=== PATIENT | male | born 1960 | race Two or more races ===

== ENCOUNTER 2016-11-30 07:56 | Inpatient (IN) | payer MEDICAID ==
[~2016-11-30] VITALS: Ht 162.6 cm; Wt 139.5 kg
[2016-11-30 09:11] LABS: Basophils # (auto) 0 uL; Basophils % (auto) 0.5 % (0.0-2.0); Eosinophils # (auto) 0.1 uL; Eosinophils % (auto) 1.8 % (0.0-7.0); Hematocrit 45.3 % (41.0-53.0); Hemoglobin 15.6 g/dL (13.5-17.5); Lymphocytes # (auto) 1.3 uL; Lymphocytes % (auto) 18.5 % (10.0-50.0); Mean Corpuscular Hemoglobin 30.9 pg (28.0-32.0); Mean Corpuscular Hgb Conc. 34.4 g/dL (32.0-36.0); Mean Corpuscular Volume 89.6 fL (80.0-100.0); Mean Platelet Volume 9.3 fL (7.4-10.4); Monocytes # (auto) 0.5 uL; Monocytes % (auto) 7.1 % (0.0-12.0); Neutrophils # (auto) 4.9 uL; Neutrophils % (auto) 72.1 % (37.0-80.0); Platelet Count (auto) 128 10^3/uL (140-450); Red Cell Distribution Width 13.3 % (11.6-16.0); White Blood Cell 6.8 10^3/uL (4.4-10.8)
[2016-11-30] MEDS ORDERED: LORazepam 2MG/ML-1ML VIAL IV ONE (09:30)
[2016-11-30 09:33] LABS: Albumin 3.5 g/dL (3.4-5.0); Anion Gap 12 (5-15); Aspartate Aminotransferase 37 U/L (15-37); BUN/Creatinine Ratio 32.5; Blood Urea Nitrogen 26 mg/dL (7-18); Calcium 8.8 mg/dL (8.5-10.1); Carbon Dioxide 24 mmol/L (21-32); Chloride 103 mmol/L (98-107); GFR African American 130 mL/min; GFR Non-African American 107 mL/min; Glucose 163 mg/dL (74-106); Magnesium 1.7 mg/dL (1.6-2.6); Sodium 139 mmol/L (136-145)
[2016-11-30 09:37] LABS: B-Type Natriuretic Peptide 15.3 pg/mL (0-100); Temperature: 23.8 C (20.0-25.0)
[2016-11-30 09:39] LABS: Alkaline Phosphatase 71 U/L (45-117); Bilirubin, Total 0.8 mg/dL (0.2-1.0); Total Protein 7.3 g/dL (6.4-8.2)
[2016-11-30] MEDS ORDERED: MORPHINE SULF INJ 2 MG/ML SYRINGE 1ML IV PRN (13:30)
[2016-11-30] MEDS ORDERED: METOPROLOL SUCCINATE XL 50 MG TAB PO ONE (13:30)
[2016-11-30] MEDS ORDERED: NITROGLYCERIN 0.4 MG SL TAB SL PRN (13:30)
[2016-11-30] MEDS ORDERED: DEXTROSE (50%) 50ML SYRG IV PRN (13:30)
[2016-11-30] MEDS ORDERED: METF-370 PO (15:44)
[2016-11-30] MEDS ORDERED: SITA100T7 PO (15:44)
[2016-11-30] MEDS ORDERED: PRAV20TA3 PO (15:44)
[2016-11-30] MEDS ORDERED: LISI-285 PO (15:44)
[2016-11-30] MEDS ORDERED: GLIM2TAB33 PO (15:44)
[2016-11-30] MEDS ORDERED: METO25TA62 PO (15:44)
[2016-11-30] MEDS ORDERED: ASPI-498 OR (15:44)
[2016-11-30] MEDS ORDERED: BACL20TA PO (15:44)
[2016-11-30] MEDS ORDERED: NAPR-607 PO (15:44)
[2016-11-30] MEDS: InsuLIN REG 1unit/0.01ml Soln (100units/ml) SC SCH ×2 (17:00→21:47)
[2016-11-30] MEDS: ACCU-CHEK COMFORT CURVE STRIP VI SCH ×2 (17:00→21:46)
[2016-11-30 17:50] VITALS: BP 92/52
[2016-11-30] MEDS ORDERED: HYDROcodone-ACET 5/325MG TAB PO PRN (18:15)
[2016-11-30] MEDS ORDERED: HCTZ 25 MG TAB PO ONE (18:30)
[2016-11-30] MEDS: ATORVASTATIN 20 MG TAB PO SCH (21:34)
[2016-11-30] MEDS: BACLOFEN 10 MG TAB PO SCH (21:35)
[2016-11-30] MEDS: NAPROXEN 500 MG TAB PO SCH (21:36)
[2016-11-30 22:00] VITALS: BP 90/57
[2016-12-01 01:55] LABS: Urine Bilirubin Negative (Negative); Urine Blood Negative /uL (Negative); Urine Color Yellow (Yellow); Urine Glucose Normal (Normal); Urine Ketone Negative (Negative); Urine Mucus FEW (None Seen); Urine Nitrite Negative (Negative); Urine RBC <1 /hpf (0 - 3); Urine Squamous Epithelial Cell FEW /hpf (<5); Urine Urobilinogen Normal (Negative); Urine pH 5.5 (5.0-8.0)
[2016-12-01 05:00] VITALS: BP 114/69
[2016-12-01] MEDS: ACCU-CHEK COMFORT CURVE STRIP VI SCH ×4 (05:49→22:00)
[2016-12-01] MEDS: InsuLIN REG 1unit/0.01ml Soln (100units/ml) SC SCH ×4 (05:49→22:00)
[2016-12-01] MEDS: BACLOFEN 10 MG TAB PO SCH ×3 (06:36→22:40)
[2016-12-01] MEDS: GLIMEPIRIDE 2 MG TAB PO SCH (06:36)
[2016-12-01 07:24] LABS: BUN/Creatinine Ratio 32.5; Calcium 8.8 mg/dL (8.5-10.1); Potassium 3.7 mmol/L (3.5-5.1)
[2016-12-01 08:00] VITALS: BP 119/65
[2016-12-01 08:24] VITALS: BP 119/65
[2016-12-01] MEDS ORDERED: PATIENTS OWN MEDICATION PO SCH ×2 (10:00)
[2016-12-01] MEDS: JANUVIA PO SCH (10:00)
[2016-12-01] MEDS: LISINOPRIL 10 MG TAB PO SCH (10:05)
[2016-12-01] MEDS: HCTZ 25 MG TAB PO SCH (10:05)
[2016-12-01] MEDS: ASPirin 81 mg TAB PO SCH (10:06)
[2016-12-01] MEDS: NAPROXEN 500 MG TAB PO SCH ×2 (10:06→22:00)
[2016-12-01] MEDS: METOPROLOL SUCCINATE XL 50 MG TAB PO SCH (10:07)
[2016-12-01 12:38] VITALS: BP 95/52
[2016-12-01 17:04] VITALS: BP 98/103
[2016-12-01 22:00] VITALS: BP 130/59
[2016-12-01] MEDS: ATORVASTATIN 20 MG TAB PO SCH (22:40)
[2016-12-02 05:00] VITALS: BP 98/54
[2016-12-02 06:04] LABS: Albumin 3.6 g/dL (3.4-5.0); BUN/Creatinine Ratio 27.4; Calcium 8.7 mg/dL (8.5-10.1); Magnesium 2.1 mg/dL (1.6-2.6); Potassium 3.8 mmol/L (3.5-5.1); Total Protein 6.9 g/dL (6.4-8.2)
[2016-12-02] MEDS: BACLOFEN 10 MG TAB PO SCH ×3 (06:32→22:13)
[2016-12-02] MEDS: GLIMEPIRIDE 2 MG TAB PO SCH (06:36)
[2016-12-02] MEDS: ACCU-CHEK COMFORT CURVE STRIP VI SCH ×4 (06:37→22:25)
[2016-12-02] MEDS: InsuLIN REG 1unit/0.01ml Soln (100units/ml) SC SCH ×4 (06:38→22:00)
[2016-12-02 08:00] VITALS: BP 140/79
[2016-12-02 09:49] VITALS: BP 140/79
[2016-12-02] MEDS: ASPirin 81 mg TAB PO SCH (10:15)
[2016-12-02] MEDS: HCTZ 25 MG TAB PO SCH (10:15)
[2016-12-02] MEDS: LISINOPRIL 10 MG TAB PO SCH (10:16)
[2016-12-02] MEDS: METOPROLOL SUCCINATE XL 50 MG TAB PO SCH (10:16)
[2016-12-02] MEDS: NAPROXEN 500 MG TAB PO SCH ×2 (10:17→22:13)
[2016-12-02] MEDS: JANUVIA PO SCH (10:17)
[2016-12-02 13:57] VITALS: BP 127/67
[2016-12-02 17:17] VITALS: BP 97/56
[2016-12-02 22:00] VITALS: BP 115/58
[2016-12-02] MEDS: ATORVASTATIN 20 MG TAB PO SCH (22:13)
[2016-12-03 05:00] VITALS: BP 98/55
[2016-12-03] MEDS: InsuLIN REG 1unit/0.01ml Soln (100units/ml) SC SCH ×2 (06:24→11:14)
[2016-12-03] MEDS: ACCU-CHEK COMFORT CURVE STRIP VI SCH ×2 (06:24→11:15)
[2016-12-03] MEDS: GLIMEPIRIDE 2 MG TAB PO SCH (06:45)
[2016-12-03] MEDS: BACLOFEN 10 MG TAB PO SCH (06:47)
[2016-12-03 08:00] VITALS: BP 98/55
[2016-12-03 09:00] VITALS: BP 85/57
[2016-12-03] MEDS: JANUVIA PO SCH (09:30)
[2016-12-03] MEDS: ASPirin 81 mg TAB PO SCH (09:31)
[2016-12-03] MEDS: NAPROXEN 500 MG TAB PO SCH (09:32)
[2016-12-03] MEDS: METOPROLOL SUCCINATE XL 50 MG TAB PO SCH (09:32)
[2016-12-03] MEDS: HCTZ 25 MG TAB PO SCH (09:32)
[2016-12-03] MEDS: LISINOPRIL 10 MG TAB PO SCH (09:33)
[2016-12-03 11:01] VITALS: BP 85/57
== END 2016-12-03 12:07 | disposition home or self-care (01) | DRG 201 ==
LOC: ER 07:56 → TELE 07:57 → TELE-E-ADS 14:45 → TELE-CENTR 17:56
PROVIDERS: ADMIT Internal Medicine; ATTEND Internal Medicine
DX: I47.1 Supraventricular tachycardia (principal); I11.9 Hypertensive heart disease without heart failure; Z68.43 Body mass index [BMI] 50.0-59.9, adult; E66.01 Morbid (severe) obesity due to excess calories; E11.9 Type 2 diabetes mellitus without complications; E78.5 Hyperlipidemia, unspecified; M19.90 Unspecified osteoarthritis, unspecified site; I25.10 Atherosclerotic heart disease of native coronary artery without angina pectoris; Z90.89 Acquired absence of other organs; Z71.89 Other specified counseling
CPT/HCPCS: 36415; 71010; 80048; 80053; 81001; 82962; 83036; 83735; 83880; 84443; 84484; 85025; 93005; 93306; 96374

== ENCOUNTER 2025-05-03 11:12 | Emergency (ER) | payer MEDICAID, OTHER ==
[~2025-05-03] VITALS: Ht 167.6 cm; Wt 113.5 kg
[~2025-05-03 11:12] MED LIST: ASPI-498 OR; BACL20TA PO; GLIM2TAB33 PO; LISI-285 PO; METF-370 PO; METO25TA93 PO; NAPR-746 PO; PRAV20TA3 PO; SITA100T7 PO
--- NOTE | 2025-05-03 11:27 | ED.PDOC ---
GI ASSESSMENT HPI Comments 64 y/o M, BIBA, with PMHx of HTN, HLD, and DM presents to the ED for CC of abdominal pain. EMS reports, patient is coming from home where he c/o epigastric abdominal pain with associated back pain onset, last night (05/03/25). At this time patient c/o 10/10 diffuse abdominal pain; patient's abdomen is notably distended at this time. Patient repots, to have associated bilateral leg swelling which has been present for xmonths however, has increasing worsened in the last couple of days. Patient denies melena, constipation, nausea, vomiting, or diarrhea. No other symptoms or modifying factors are present at this time. Chief Complaint: Abdominal Pain Time Seen by MD: 11:20 Primary Care Provider: LILIA Reviewed Notes: Nurses Notes, Medications, Allergies Allergies: Coded Allergies: NO KNOWN ALLERGIES (Unverified , 03/21/14) Home Meds Reported Medications Metoprolol Succinate (Metoprolol Succinate Er) 25 Mg Tab, 1 TAB PO QPM, #30 TAB 5 Refills 11/30/16 Pravastatin Sodium (PRAVACHOL TABLET) 20 Mg Tb, 1 TAB PO QPM, #90 TAB 3 Refills 11/30/16 Baclofen (Baclofen) 20 Mg Tab, 1 TAB PO TID, #90 TAB 2 Refills 11/30/16 Sitagliptin Phosphate (Januvia) 100 Mg Tab, 1 TAB PO DAILY, #30 TAB 5 Refills 11/30/16 Naproxen (Naproxen) 500 Mg Tab, 500 MG PO BID, TAB 11/30/16 Aspirin (ASPIRIN 81) 81 Mg Tab, 81 MG OR DAILY, TAB 11/30/16 Lisinopril & Hydrochlorothiazi (Lisinopril/Hydrochlorothi) 1 Tab Tab, 1 TAB PO DAILY, #30 TAB 5 Refills 11/30/16 Glimepiride (Glimepiride) 2 Mg Tab, 1 TAB PO DAILY, #30 TAB 5 Refills 17 Metformin Hydrochloride (Metformin Hcl) 500 Mg Tab, 1000 MG PO IBID for 30 Days, MG 11/30/16 Information Source: Patient Mode of Arrival: EMS Timing: Hours Duration: Since onset Prehospital treatment: None Quality: None Vomitus: None Stool: Normal Severity: Moderate Recent: None Recent Hx of: Diabetes Pain Location: Epigastric Modifying Factors: Nothing Associated sign and symptoms: Abdominal Pain Past Medical History PAST MEDICAL HISTORY: Arthritis, DM, High Lipids, HTN Surgical History: Tonsillectomy Family History Family History: Family hx of DM, Family hx of heart jeremy Social History Smoker: Non-Smoker Alcohol: Denies ETOH Use Drugs: Denies Drug Use Lives In: Home Constitutional: denies: chills, diaphoresis, fatigue, fever, malaise, sweats, weakness, others EENTM: denies: blurred vision, double vision, ear bleeding, ear discharge, ear drainage, ear pain, ear ringing, eye pain, eye redness, hearing loss, mouth pain, mouth swelling, nasal discharge, nose bleeding, nose congestion, nose pain, photophobia, tearing, throat pain, throat swelling, voice changes, others Respiratory: denies: cough, hemoptysis, orthopnea, SOB at rest, shortness of breath, SOB with excertion, stridor, wheezing, others Cardiovascular: denies: chest pain, dizzy spells, diaphoresis, Dyspnea on exertion, edema, irregular heart beat, left arm pain, lightheadedness, palpitations, PND, syncope, others Gastrointestinal: reports: abdominal pain; denies: abdomen distended, blood streaked bowels, constipated, diarrhea, dysphagia, difficulty swallowing, hematemesis, melena, nausea, poor appetite, poor fluid intake, rectal bleeding, rectal pain, vomiting, others Genitourinary: denies: burning, dysuria, flank pain, frequency, hematuria, incontinence, penile discharge, penile sore, pain, testicle pain, testicle swelling, urgency, others Neurological: denies: dizziness, fainting, headache, left sided numbness, left sided weakness, numbness, paresthesia, pre-existing deficit, right sided numbness, right sided weakness, seizure, speech problems, tingling, tremors, weakness, others Musculoskeletal: reports: back pain; denies: gout, joint pain, joint swelling, muscle pain, muscle stiffness, neck pain, others Integumetry: denies: bruises, change in color, change in hair/nails, dryness, laceration, lesions, lumps, rash, wounds, others Allergic/Immunocompromised: denies: Difficulty Healing, Frequent Infections, Hives, Itching, others Hematologic/Lymphatic: denies: anemia, blood clots, easy bleeding, easy bruising, swollen glands, others Endocrine: denies: excessive hunger, excessive sweating, excessive thirst, excessive urination, flushing, intolerance to cold, intolerance to heat, unexplained weight gain, unexplained weight loss, others Psychiatric: denies: anxiety, bipolar disorder, depression, hopeless, panic d isorder, schizophrenia, sleepless, suicidal, others All Other Systems: Reviewed and Negative Physical Exam General Appearance: Moderate Distress, Obese HEENT: Pharynx Normal, Scleral Icterus (L), Scleral Icterus (R), TMs Normal Neck: Full Range of Motion, Non-Tender, Normal, Normal Inspection Respiratory: Chest Non-Tender, Lungs Clear, No Accessory Muscle Use, No Respiratory Distress, Normal Breath Sounds Cardiovascular: No Edema, No JVD, No Murmur, No Gallop, Normal Peripheral Pulses, Regular Rate/Rhythm Breast Exam: Deferred Gastrointestinal: Distended, Epigastric, Hepatomegaly, No Pulsatile Mass, Normal Bowel Sounds, Soft, Tenderness Genitalia: Deferred Pelvic: Deferred Rectal: Deferred Extremities: No calf tenderness, Normal capillary refill, Normal inspection, Normal range of motion, Non-tender, No pedal edema Musculoskeletal : Apperance: Normal Neurologic: Alert, principal java software engineer II-XII nml as Tested, Motor Weakness, Normal Affect, Normal Mood, No Sensory Deficits Cerebellar Function: Normal Reflexes: Normal Skin: Dry, Normal Color, Warm Lymphatic: No Adenopathy Was a procedure done? Was a procedure done?: No GI differential Dx Differential Diagnosis: Cholangitis, Cholecystitis, Constipation, Gastritis/PUD, Gastroenteritis, Inflammatory BD X-Ray, Labs, Meds, VS Vital Signs Date Time Temp Pulse Resp B/P (MAP) Pulse Ox O2 Delivery O2 Flow Rate FiO2 05/03/25 13:15 97 24 117/58 (77) 98 05/03/25 13:06 94 26 117/58 05/03/25 12:00 93 05/03/25 12:00 101 05/03/25 11:19 98.2 94 18 132/81 97 98.2 Lab Test 05/03/25 11:36 Range/Units White Blood Count 6.4 4.4-10.8 10^3/uL Red Blood Count 5.10 4.5-5.90 10^6/uL Hemoglobin 13.9 13.5-17.5 g/dL Hematocrit 43.2 41.0-53.0 % Mean Corpuscular Volume 84.5 80.0-100.0 fL Mean Corpuscular Hemoglobin 27.3 L 28.0-32.0 pg Mean Corpuscular Hemoglobin Concent 32.3 32.0-36.0 g/dL Red Cell Distribution Width 15.3 H 11.8-14.3 % Platelet Count 58 L 140-450 10^3/uL Mean Platelet Volume 8.9 6.9-10.8 fL Neutrophils (%) (Auto) 91.5 H 37.0-80.0 % Lymphocytes (%) (Auto) 5.4 L 10.0-50.0 % Monocytes (%) (Auto) 2.8 0.0-12.0 % Eosinophils (%) (Auto) 0.1 0.0-7.0 % Basophils (%) (Auto) 0.2 0.0-2.0 % Neutrophils # (Auto) 5.9 1.6-8.6 10 ^3/uL Lymphocytes # (Auto) 0.3 L 0.4-5.4 10 ^3/uL Monocytes # (Auto) 0.2 0-1.3 10 ^3/uL Eosinophils # (Auto) 0 0-0.8 10 ^3/uL Basophils # (Auto) 0 0-0.2 10 ^3/uL Nucleated Red Blood Cells 0.2 % Sodium Level 139 136-145 mmol/L Potassium Level 4.0 3.5-5.1 mmol/L Chloride Level 103 98-107 mmol/L Carbon Dioxide Level 24 20-31 mmol/L Anion Gap 12 5-15 Blood Urea Nitrogen 18 9-23 mg/dL Creatinine 0.59 L 0.700-1.30 mg/dL Glomerular Filtration Rate Calc 109 >90 mL/min BUN/Creatinine Ratio 30.5 H 10.0-20.0 Serum Glucose 228 H 74-106 mg/dL Calcium Level 8.8 8.7-10.4 mg/dL Total Bilirubin 2.8 H 0.2-1.0 mg/dL Aspartate Amino Transferase (AST) 153 H 13-40 U/L Alanine Aminotransferase (ALT) 74 H 7-40 U/L Alkaline Phosphatase 176 H 46-116 U/L Total Protein 6.7 5.7-8.2 g/dL Albumin 3.6 3.2-4.8 g/dL Lipase 1314 H 12-53 U/L Current Medications Medications (Trade) Dose Ordered Sig/[place] Route Start Time Stop Time Status Last Admin Ondansetron HCl (Zofran) 4 mg ONCE ONCE IV 05/03/25 11:30 05/03/25 11:31 DC 05/03/25 13:06 Morphine Sulfate 4 mg ONCE ONCE IV 05/03/25 11:30 05/03/25 11:31 DC 05/03/25 13:06 Pantoprazole Sodium (Protonix) 40 mg ONCE ONCE IV 05/03/25 11:30 05/03/25 11:31 DC 05/03/25 13:06 [place] [address] Ph: [phone] DIAGNOSTIC IMAGING Diagnostic Imaging Report : [id number] Signed PATIENT: ANNALISA ELIZABETH ACCT: [id number] UNIT: [id number] : 1960 LOC: ER ROOM / BED: / AGE / SEX: 64 / M ADM STATUS: REG ER SERVICE 1120 ORDERING PHYSICIAN: NAEEM BURROUGHS MD PROCEDURE(s): GBUS - GALLBLADDER REASON: pain ORDER NUMBER(s): [id number], ACCESSION NUMBER(s): [id number] INDICATION: pain TECHNIQUE: Multiple real-time sonographic images were obtained of the right upper quadrant. COMPARISON: None FINDINGS: Evaluation is limited due to obscuration from bowel gas. The liver demonstrates coarsened echotexture without focal mass lesions. The liver measures 17 cm. There is no intrahepatic or extrahepatic ductal dilatation. The common duct measures is not well visualized due to obscuration from bowel gas. Gallstones. There is no gallbladder wall thickening. Mild gallbladder distention. The right kidney measures 13 cm. The right kidney is normal in contour, size, and shape. The echogenicity is normal. There is no hydronephrosis. The pancreas is not well visualized due to overlying bowel gas. IMPRESSION: Cholelithiasis. Mild gallbladder distention. If clinical concern for acute cholecystitis, consider further evaluation with nuclear medicine HIDA scan. Coarsened liver echotexture suggestive of chronic liver disease. ATED BY: BRYANNA BERG MD DICTATED DATE/TIME: 05/03/25 1210 SIGNED BY: BRYANNA BERG MD SIGNED DATE/TIME: 05/03/25 1210 CC: IV Hep-Lock was established. The patient's CBC is within normal limits. The chemistry panel is within normal limits The patient's lipase is elevated at 1314 The ALT and AST as well as the alk-phos are also increased and the total bilirubin is 2.8 The recommendation is that this patient has an MRCP. We did contact [facility] and they are accepting the patient to be transferred to their facility. This is transfer is also for higher level of care. The authorization #[id number] We have discussed the findings with the patient as well as the son and his . Images Reviewed?: Images reviewed and evaluated by me Time of 1ST Reevaluation: 11:50 Reevaluation 1ST: Unchanged Patient Education/Counseling: Diagnosis, Treatment, Prognosis Family Education/Counseling: No Family Present SEPSIS Sepsis Screen Physician Orders Urinalysis (05/03/25 11:20) Heplock Iv (05/03/25 11:20) Billet Heater (05/03/25 11:20) Blood Pressure (05/03/25 11:20) Pulse Oximetry (05/03/25 11:20) Gallbladder (05/03/25 11:20) Electrocardigram (05/03/25 11:20) Vital Signs Date Time Temp Pulse Resp B/P (MAP) Pulse Ox O2 Delivery O2 Flow Rate FiO2 05/03/25 13:15 97 24 117/58 (77) 98 05/03/25 13:06 94 26 117/58 05/03/25 12:00 93 05/03/25 12:00 101 05/03/25 11:19 98.2 94 18 132/81 97 98.2 Laboratory Tests Test 05/03/25 11:36 White Blood Count 6.4 10^3/uL (4.4-10.8) Medications Medications Dose Ordered Sig/[place] Route Start Time Stop Time Status Last Admin Dose Admin Morphine Sulfate 4 mg ONCE ONCE IV 05/03/25 11:30 05/03/25 11:31 DC 05/03/25 13:06 Ondansetron HCl 4 mg ONCE ONCE IV 05/03/25 11:30 05/03/25 11:31 DC 11/6/25 13:06 Pantoprazole Sodium 40 mg ONCE ONCE IV 05/03/25 11:30 05/03/25 11:31 DC 05/03/25 13:06 Departure 1 Departure Time of Disposition: 13:01 Impression: Primary Impression: Intractable abdominal pain Additional Impressions: Gallstone pancreatitis Hyperbilirubinemia Disposition: 51 HOSPICE/MEDICAL FACILITY Condition: Fair Critical Care Note Critical Care Time?: No Stability Stability form required: Yes Stable for transfer: Intended for transfer (Health plan request transfer), To designated facility Heart Score Heart Score: Heart Score Response (Comments) Value History N/A 0 EKG N/A 0 Age N/A 0 Risk Factors N/A 0 Troponin N/A 0 Total 0 I personally scribed for NAEEM BURROUGHS MD ([email or web address]) on 05/03/25 at 11:27. Electronically submitted by Stacy Adrian [email or web address]). I personally scribed for NAEEM BURROUGHS MD ([email or web address]) on 05/03/25 at 12:37. Electronically submitted by Stacy Adrian [email or web address]). NAEEM BURROUGHS MD May 03, 2025 11:27
[2025-05-03 12:00] VITALS: PULSE 100; RESP 18; O2SAT 95
[2025-05-03] MEDS: SODIUM CHLORIDE 0.9% 500 ML IVB ONE (12:00)
--- NOTE | 2025-05-03 12:12 | DVH ---
INDICATION: pain TECHNIQUE: Multiple real-time sonographic images were obtained of the right upper quadrant. COMPARISON: None FINDINGS: Evaluation is limited due to obscuration from bowel gas. The liver demonstrates coarsened echotexture without focal mass lesions. The liver measures 17 cm. There is no intrahepatic or extrahepatic ductal dilatation. The common duct measures is not well visualized due to obscuration from bowel gas. Gallstones. There is no gallbladder wall thickening. Mild gallbladder distention. The right kidney measures 13 cm. The right kidney is normal in contour, size, and shape. The echogenicity is normal. There is no hydronephrosis. The pancreas is not well visualized due to overlying bowel gas. IMPRESSION: Cholelithiasis. Mild gallbladder distention. If clinical concern for acute cholecystitis, consider further evaluation with nuclear medicine HIDA scan. Coarsened liver echotexture suggestive of chronic liver disease.
[2025-05-03 12:24] LABS: Hematocrit 43.2 % (41.0-53.0); Hemoglobin 13.9 g/dL (13.5-17.5); Mean Corpuscular Hemoglobin 27.3 pg (28.0-32.0); Mean Corpuscular Volume 84.5 fL (80.0-100.0); Nucleated Red Blood Cells % 0.2 %
[2025-05-03 12:39] LABS: Anion Gap 12 (5-15); BUN/Creatinine Ratio 30.5 (10.0-20.0); Blood Urea Nitrogen 18 mg/dL (9-23); Calcium 8.8 mg/dL (8.7-10.4); Carbon Dioxide 24 mmol/L (20-31); Chloride 103 mmol/L (98-107); Potassium 4.0 mmol/L (3.5-5.1); Sodium 139 mmol/L (136-145); Total Protein 6.7 g/dL (5.7-8.2)
[2025-05-03 12:40] LABS: Albumin 3.6 g/dL (3.2-4.8)
[2025-05-03 12:43] LABS: Alanine Aminotransferase 74 U/L (7-40); Alkaline Phosphatase 176 U/L (46-116); Bilirubin, Total 2.8 mg/dL (0.2-1.0); Glucose 228 mg/dL (74-106)
[2025-05-03 12:49] LABS: Lipase 1314 U/L (12-53)
[2025-05-03] MEDS: ONDANSETRON HCL 4 MG/2 ML VIAL IV ONE (13:06)
[2025-05-03] MEDS: PANTOPRAZOLE 40 MG/10 ML VIAL INJ IV ONE (13:06)
[2025-05-03] MEDS: MORPHINE SULFATE 4 MG/ML SYR/VIAL IV ONE (13:06)
[2025-05-03 14:26] LABS: Urine Protein, UAD TRACE (Negative)
[2025-05-03] MEDS: PIPERACILLIN-TAZOB 3.375GM 100 ML IV ONE (14:33)
[2025-05-03 17:06] VITALS: BP 107/60; PULSE 103; RESP 22; TEMP 99.9; O2SAT 96
--- NOTE | 2025-05-04 06:20 | ECG ---
[facility] Test Date: 2025-05-03 Test Time: 11:58:41 Pat Name: ANNALISA ELIZABETH Department: [facility] ED Patient ID: [facility]-[id number] Room: Gender: M Director Of Cardiac Rehabilitation: AIYANA : 1960 Requested By: NAEEM BURROUGHS Order Number: [id number] Reading MD: Ilya Kyle Measurements Intervals [place] Rate: 93 P: 30 NM: 186 QRS: -57 QRSD: 126 T: 110 QT: 381 QTc: 474 Interpretive Statements Sinus rhythm Multiform ventricular premature complexes Left bundle branch block Electronically Signed On 05-07-2025 10:53:58 PST by Ilya Kyle Please click the below link to view image of tracing.
== END 2025-05-03 13:17 | disposition short-term general hospital (02) ==
LOC: ER 11:12 → EDBD 11:12 → EDUNIT# 11:12 → ER 13:17
DX: K85.10 Biliary acute pancreatitis without necrosis or infection (principal); E80.6 Other disorders of bilirubin metabolism; R10.13 Epigastric pain; I10 Essential (primary) hypertension; E78.5 Hyperlipidemia, unspecified; E11.9 Type 2 diabetes mellitus without complications; M19.90 Unspecified osteoarthritis, unspecified site; Z79.899 Other long term (current) drug therapy; Z90.89 Acquired absence of other organs; Z79.82 Long term (current) use of aspirin; Z79.84 Long term (current) use of oral hypoglycemic drugs
CPT/HCPCS: 36415; 76705; 80053; 81001; 83690; 85025; 93005; 96365; 96375; 99285; J2270; J2405; J2470; J2543; J7040